=== PATIENT | male | born 1940 | race Caucasian/White ===

== ENCOUNTER 2018-03-03 22:15 | Day surgery (SDC) | payer MEDICARE, OTHER ==
[~2018-03-03 22:15] MED LIST: CEFAZOLIN 1 GM INJ; HEPARIN 1000 UNITS/ML 10 ML INJ; IOHEXOL 300MG/ML 30 ML BTL; LIDOCAINE 1% (MPF) 30 ML INJ
[2018-03-03] MEDS ORDERED: ONDANSETRON 4 MG INJ IV (23:00)
[2018-03-03] MEDS ORDERED: SUGAMMADEX SODIUM 200 MG/2 ML VIAL IV (23:08)
[2018-03-03] MEDS ORDERED: ROCURONIUM 50 MG INJ (23:08)
[2018-03-04] MEDS ORDERED: MEPERIDINE 25 MG INJ IV
[2018-03-04] MEDS ORDERED: morphine (1 MG/ML) 10ML SYRINGE IV ×2
[2018-03-04] MEDS ORDERED: ALBUTEROL 0.083% (NEB) 2.5 MG/3 ML AMP HHN
[2018-03-04] MEDS ORDERED: MIDAZOLAM 1 MG/ML 2 ML INJ IV
[2018-03-04] MEDS ORDERED: ONDANSETRON 4 MG INJ IV
[2018-03-04] MEDS ORDERED: LABETALOL HCL 20MG INJ IV
[2018-03-04] MEDS ORDERED: DIPHENHYDRAMINE 50 MG INJ IV
[2018-03-04] MEDS ORDERED: hydrALAzine 20 MG INJ IV
[2018-03-04] MEDS ORDERED: EPHEDrine SULFATE 50 MG/5 ML SYG IV
== END 2018-03-04 00:33 | disposition home or self-care (01) ==
LOC: SUR 03-04 00:33
DX: I12.0 Hypertensive chronic kidney disease with stage 5 chronic kidney disease or end stage renal disease (principal); N18.6 End stage renal disease; J96.00 Acute respiratory failure, unspecified whether with hypoxia or hypercapnia; J44.9 Chronic obstructive pulmonary disease, unspecified; E11.21 Type 2 diabetes mellitus with diabetic nephropathy; E11.40 Type 2 diabetes mellitus with diabetic neuropathy, unspecified; I25.10 Atherosclerotic heart disease of native coronary artery without angina pectoris; I48.0 Paroxysmal atrial fibrillation; I73.9 Peripheral vascular disease, unspecified; E03.9 Hypothyroidism, unspecified; E78.5 Hyperlipidemia, unspecified; Z79.82 Long term (current) use of aspirin; Z87.891 Personal history of nicotine dependence
CPT/HCPCS: 36561; 71045; 71047